=== PATIENT | male | born 1980 ===

== ENCOUNTER 2021-01-25 08:26 | Emergency (ER) | payer OTHER ==
[~2021-01-25] VITALS: Ht 172.7 cm; Wt 90.7 kg
[2021-01-25 08:30] VITALS: BP 162/97
--- NOTE | 2021-01-25 09:08 | ER.PDOC ---
General Chief Complaint: Earache Stated Complaint: EAR BLEEDING TRAVEL OUT OF US: No Time seen by MD: 08:32 Source: patient Exam Limitations: no limitations History of Present Illness Initial Comments This 40-year-old male comes in because of some blood from his right ear. He stated that he went to bed at 10:00 last night and felt absolutely fine. At 1:00 this morning he woke up and had some blood on his pillow. He still denied any symptoms at all. He denies any known trauma to this nothing. He has no other acute complaints. Timing/Duration: other (As noted above) Severity: mild (Minimal bleeding and now no active bleeding at all) Modifying Factors: improves with other (Nothing changes) Associated Symptoms: denies symptoms Allergies: Coded Allergies: No Known Allergies (Unverified , 01/25/21) Past Medical History Medical History: no pertinent history Surgical History: no surgical history Social History Smoking: non-smoker Alcohol Use: occassionally Drug Use: none Review of Systems EENTM: see HPI All Other Systems: Reviewed and Negative Physical Exam General Appearance: No Apparent Distress, WD/WN EENT: eyes nml inspection, other (Exam of his TMs are clear. He does have blood in the proximal external canal on the right side. There is no active bleeding. I suspect that he had a little blood vessel pop in there and made the bleeding or he put something in the ear like a [employer] pin to clean it and scratched it and did not realize he did so and woke up at 1:00 with the blood on the pillow. Since there is no active bleeding, we will just put him on some antibiotic ointment that he is to apply 4 times a day with a Q-tip for the next 5 days) Neck: Non-Tender, Full Range of Motion Respiratory: chest non-tender, lungs clear, normal breath sounds, no respiratory distress CVS: reg rate & rhythm, pulses nml Gastrointestinal: Normal Bowel Sounds, Non Tender Back: Normal Inspection Extremities: Normal Range of Motion, Non-Tender, Normal Inspection, No Pedal Edema Neurologic/Psychiatric: burner hand II-XII NML as Tested, No Motor/Sensory Deficits, Alert, Normal Mood/Affect, Oriented x 3 Skin: Normal Color, Warm/Dry Lymphatic: No Adenopathy Results/Orders Results/Orders Vital Signs Date Time Temp Pulse Resp B/P (MAP) Pulse Ox O2 Delivery O2 Flow Rate FiO2 01/25/21 08:30 98.1 68 18 99 01/25/21 08:30 98.1 68 18 162/97 (118) 99 Room Air 01/25/21 08:30 98.1 68 18 ER DEPART Departure Time of Disposition: 09:06 Disposition: 01 HOME / SELF CARE / HOMELESS Impression: Primary Impression: Hemorrhagic otitis externa of right external auditory canal Condition: Improved Referrals: PCP,UNKNOWN (PCP) PRIMARY CARE PROVIDER Comments Gentamicin ointment applied to the external canal 4 times daily x5 days Duration or Time Spent with Pa: MEMO Zacarias MD Jan 25, 2021 09:08
== END 2021-01-25 09:11 | disposition home or self-care (01) ==
LOC: ER 08:26
DX: H60.8X1 Other otitis externa, right ear (principal)
CPT/HCPCS: 99283